=== PATIENT | female | born 1985 | race Two or more races ===

== ENCOUNTER 2017-01-14 09:49 | Day surgery (SDC) | payer BC, OTHER ==
[2017-01-12 15:04] VITALS: BMI 24.7
[2017-01-14] MEDS ORDERED: ERTAPENEM SODIUM 1 GM VIAL ONE (11:00)
[2017-01-14] MEDS ORDERED: ONDANSETRON 4 MG/2 ML VIAL IVPUSH PRN ×2 (11:56→12:36)
[2017-01-14] MEDS ORDERED: LACTATED RINGERS SOLUTION 1,000 ML IV SCH (12:00)
[2017-01-14] MEDS ORDERED: ACETAMINOPHEN 325 MG TABLET (FP) PO PRN (12:36)
[2017-01-14] MEDS ORDERED: oxyCODONE HCL 5 MG TABLET PO PRN (12:36)
[2017-01-14] MEDS ORDERED: IBUPROFEN 800 MG/8 ML IJ IVPB PRN (12:39)
[2017-01-14] MEDS ORDERED: D5-1/2NS+20 MEQ KCL - 20 MEQ/1,000 ML INFUS.BAG IV SCH (12:45)
[2017-01-14] MEDS ORDERED: MIDAZOLAM HCL 2 MG/2 ML SINGLE DOSE VIAL ONE (13:24)
[2017-01-14] MEDS ORDERED: ROCURONIUM BROMIDE 50 MG/5 ML VIAL ONE ×2 (13:28→13:41)
[2017-01-14] MEDS ORDERED: ERTAPENEM SODIUM 1 GM VIAL IVPB ONE (13:30)
[2017-01-14] MEDS ORDERED: NEOSTIGMINE METHYLSULFATE 0.5 MG/ML - 10 ML MDV ONE (13:47)
[2017-01-14] MEDS ORDERED: PROPOFOL 20 ML ONE (13:47)
[2017-01-14] MEDS ORDERED: ONDANSETRON 4 MG/2 ML VIAL ONE (13:48)
[2017-01-14] MEDS ORDERED: DEXAMETHASONE SOD PHOSPHATE 4 MG/1 ML VIAL ONE (13:48)
[2017-01-14] MEDS ORDERED: LIDOCAINE HCL/PF 2% SDV 5ML VIAL ONE (13:48)
[2017-01-14] MEDS ORDERED: KETOROLAC TROMETHAMINE 30 MG/1 ML VIAL ONE (13:49)
[2017-01-14] MEDS: morphine SULFATE 4 MG/ML VIAL IVPB PRN (21:58)
[2017-01-15] MEDS: morphine SULFATE 4 MG/ML VIAL IVPB PRN (01:24)
--- NOTE | 2017-01-15 08:47 | PN ---
Progress Note (short form) - Note Progress Note: POD #1 - s/p laparoscopic cholecystectomy under general anesthesia. VSS. Pt. doing well, sitting up comfortably in bed having breakfast. No complaints. No apparent anesthetic complications noted. Continue current care.
[2017-01-15] MEDS ORDERED: ENOXAPARIN NA (PORCINE) 40 MG/0.4 ML DISP.SYRIN SQ SCH (10:00)
[2017-01-15] MEDS ORDERED: PANTOPRAZOLE SODIUM 40 MG VIAL IVPUSH SCH (10:00)
[2017-01-15 10:59] VITALS: BP 129/83; PULSE 60; TEMP 97.7
--- NOTE | 2017-01-15 13:36 | OP ---
DATE OF OPERATION: 01/14/2017 PREOPERATIVE DIAGNOSIS: Chronic cholecystitis/cholelithiasis. POSTOPERATIVE DIAGNOSIS: Chronic cholecystitis/cholelithiasis. PROCEDURE: Laparoscopic cholecystectomy. OPERATING SURGEON: Miky Schneider M.D. EMPLOYMENT LAW SPECIALIST: Timothy Isbell M.D. ANESTHESIA: Rakel Perry M.D. (general) HISTORY: A 31-year-old woman presents for laparoscopic removal of her gallbladder as management of symptomatic cholelithiasis. Indications, alternatives, possible complications reviewed. Consent obtained. DESCRIPTION OF PROCEDURE: With the patient in supine position, using general anesthesia, the abdomen was prepped and draped in sterile fashion using chlorhexidine. A small infraumbilical incision was made, through which a Veress needle was placed into the abdominal cavity. The abdominal cavity was insufflated to an adequate pressure and volume using CO2 gas. The Veress needle was removed. A linear trocar port placed through the infraumbilical wound. The camera was passed through the port and intraabdominal cavity visualized. Under direct vision, two 5-mm right anterolateral ports were placed, through which clamps were passed to maintain traction on the gallbladder and aid in the dissection. An 11-mm trocar port was placed in the epigastric, through which the operating instruments were passed. Limited exploration of the abdomen revealed a pale-appearing, somewhat thickened gallbladder with several surrounding adhesions. These adhesions were taken down under direct vision, exposing the entire hepatoduodenal ligament. The peritoneum of the hepatoduodenal ligament was incised. The cystic duct was identified. The cystic duct-bile duct junction was noted. The cystic duct was clipped proximally and distally and divided. The adjacent artery was managed similarly. The gallbladder was then removed from the gallbladder bed, lysing its attachment to the liver using electrocautery. Prior to disconnection, the bed was inspected and adequate hemostasis noted. The right upper quadrant was irrigated. The irrigant was retrieved. All ports were removed under direct vision. No bleeding identified. Ultimately, the gallbladder was delivered through the umbilical port uneventfully. The pneumoperitoneum was allowed to escape. The fascia at the umbilical wound was closed using interrupted 0 Vicryl sutures. All skin wounds were closed using subcuticular 4-0 Biosyn sutures. NEEDLE AND INSTRUMENT COUNT: Correct. ESTIMATED BLOOD LOSS: Less than 100 mL. DRAINS: None. IMPLANT: None. SPECIMEN: Gallbladder. The patient tolerated the procedure. The procedure was terminated. Shauna [id number] MTDD
--- NOTE | 2017-01-16 16:56 | PATH ---
Surgical Pathology Report Patient Name: JORJE CARSON [facility]. Rec. #: [id number] /Age/Gender: 1985 (Age: 31) / F Account: [id number] Location: AMBULATORY SURG Taken: 01/14/2017 Received: 01/15/2017 Reported: 01/16/2017 Physicians: Miky Schneider M.D. Specimen(s) Received GALLBLADDER Clinical History Chronic cholelithiasis Final Diagnosis GALLBLADDER, LAPAROSCOPIC CHOLECYSTECTOMY: CHRONIC CHOLECYSTITIS AND CHOLELITHIASIS. ONE BENIGN PERIDUCTAL LYMPH NODE (0/1). Electronically Signed Clara Huerta M.D. Gross Description Received in formalin, labeled "gallbladder," is a 8.3 x 2.0 x 2.0 cm. gallbladder with a 0.2 cm. in length portion of cystic duct attached. There is a 0.8 cm in greatest dimension periductal lymph node present. The outer surface is gale-green and varies from smooth to shaggy. The lumen contains green, tenacious bile as well as a 2.3 cm in greatest dimension gale, ovoid cholelith. The mucosa is green, velvety and focally eroded. The wall of the gallbladder ranges from 0.1-0.3 cm. in thickness. Hog Raiser sections are submitted in one cassette. 01/15/201701/15/2017
== END 2017-01-15 14:05 | disposition home or self-care (01) ==
LOC: JASUSAT 09:49 → J8W 17:15 → JASUSAT 01-15 14:05
PROVIDERS: ATTEND Surgery
PROC: 0FT44ZZ Resection of Gallbladder, Percutaneous Endoscopic Approach (ICD-10-PCS; principal; 2017-01-14 12:00)
DX: K80.10 Calculus of gallbladder with chronic cholecystitis without obstruction (principal)
CPT/HCPCS: 84703; 86850; 86900; 86901; 88304-TC; 94010; 94760